=== PATIENT | female | born 1965 | race Caucasian/White ===

== ENCOUNTER 2021-07-20 10:04 | Outpatient (CLI) | payer MEDICAID, SELFPAY | END 2021-07-20 10:05 | disposition home or self-care (01) | LOC: WOUND 10:05 | PROVIDERS: Visit Provider Thoracic Surgery (Cardiothoracic Vascular Surgery) | DX: L97.811 Non-pressure chronic ulcer of other part of right lower leg limited to breakdown of skin (principal); F17.210 Nicotine dependence, cigarettes, uncomplicated | CPT/HCPCS: 99203 ==

== ENCOUNTER 2021-07-27 14:46 | Outpatient (CLI) | payer MEDICAID, SELFPAY | END 2021-07-27 14:47 | disposition home or self-care (01) | LOC: WOUND 14:48 | PROVIDERS: Visit Provider Thoracic Surgery (Cardiothoracic Vascular Surgery) | DX: L97.811 Non-pressure chronic ulcer of other part of right lower leg limited to breakdown of skin (principal); F17.210 Nicotine dependence, cigarettes, uncomplicated; I10 Essential (primary) hypertension | CPT/HCPCS: 97597 ==

== ENCOUNTER 2021-08-10 08:07 | Outpatient (CLI) | payer MEDICAID, SELFPAY | END 2021-08-10 08:08 | disposition home or self-care (01) | LOC: WOUND 08:08 | PROVIDERS: Visit Provider Emergency Medicine | DX: Z09 Encounter for follow-up examination after completed treatment for conditions other than malignant neoplasm (principal) | CPT/HCPCS: 99212 ==